=== PATIENT | female | born 1965 | race Caucasian/White ===

== ENCOUNTER 2017-11-15 22:47 | Emergency (ER) | payer MEDICAID ==
[~2017-11-15] VITALS: Ht 170.2 cm; Wt 70.0 kg
[~2017-11-15 22:47] MED LIST: ONDA4TAB9 SL
[2017-11-16] MEDS ORDERED: LORazepam 1 MG tablet PO ONE (01:00)
[2017-11-16] MEDS ORDERED: diphenhydrAMINE 25mg capsule PO ONE (02:45)
[2017-11-16] MEDS ORDERED: ketorolac trometh inj. 60 MG/2 ML VIAL IM ONE (02:45)
[2017-11-16 03:34] VITALS: BP 132/88
== END 2017-11-16 03:37 | disposition home or self-care (01) ==
LOC: ER 22:47
DX: F11.23 Opioid dependence with withdrawal (principal); F17.200 Nicotine dependence, unspecified, uncomplicated; F15.90 Other stimulant use, unspecified, uncomplicated; F11.90 Opioid use, unspecified, uncomplicated
CPT/HCPCS: 96372; 99283; J1885; Q0163